=== PATIENT | female | born 1965 | race Caucasian/White ===

== ENCOUNTER 2017-03-06 21:28 | Emergency (ER) | payer BC, OTHER ==
[2017-03-06 21:29] VITALS: BMI 23.3
[2017-03-06 22:07] VITALS: TEMP 97.8
--- NOTE | 2017-03-06 22:10 | ED PDOC ---
Arrival/HPI - General Chief Complaint: Rib Injury Time Seen by Provider: 03/06/17 21:41 Historian: Patient - History of Present Illness Narrative History of Present Illness (Text): 03/06/17 21:50 Heidi Schaefer is a 51 year old female, whose past medical history includes asthma, who presents to the emergency department complaining of right sided rib pain radiating to breast area. Patient states that she developed pain after she was struck by her car door in her right side 1 week ago. She says for 3 days the pain now seems to radiate to her right breast as well. Patient states that she took Tylenol and Aleve which brought some relief by the pain came back. Patient has no other complaints at this time. Time/Duration: < week Symptom Onset: Gradual Symptom Course: Unchanged Activities at Onset: Light Context: Home Past Medical History - Infectious Disease Hx of Infectious Diseases: None - Tetanus Immunization Tetanus Immunization: Unknown - Cardiac Hx Hypertension: Yes - Pulmonary Hx Asthma: Yes - Psychiatric Hx Depression: Yes Hx Emotional Abuse: No Hx Physical Abuse: No Hx Substance Use: No - Surgical History Hx Section: Yes - Suicidal Assessment Feels Threatened In Home Enviroment: No Family/Social History - Physician Review Nursing Documentation Reviewed: Yes Family/Social History: Other (nc) Smoking Status: Never Smoked Hx Alcohol Use: No Hx Substance Use: No Hx Substance Use Treatment: No Allergies/Home Meds Allergies/Adverse Reactions: Allergies No Known Allergies Allergy (Verified 04/07/14 17:41) Review of Systems - Physician Review All systems were reviewed & negative as marked: Yes - Review of Systems Constitutional: absent: Fevers, Night Sweats Eyes: absent: Vision Changes ENT: absent: Hearing Changes Respiratory: absent: SOB Gastrointestinal: absent: Abdominal Pain Genitourinary Female: absent: Dysuria, Frequency Musculoskeletal: absent: Arthralgias Skin: absent: Rash Neurological: absent: Headache Endocrine: absent: Diaphoresis Hemo/Lymphatic: absent: Adenopathy Physical Exam Vital Signs Reviewed: Yes Vital Signs Temp Pulse Resp BP Pulse Ox 03/07/17 00:38 68 18 134/73 99 03/06/17 23:29 65 16 135/70 99 03/06/17 21:50 97.8 F 63 18 139/72 97 Appearance: Positive for: Well-Appearing, Non-Toxic Pain Distress: None Mental Status: Positive for: Alert and Oriented X 3 - Systems Exam Head: Present: Atraumatic, Normocephalic Pupils: Present: PERRL Extroacular Muscles: Present: EOMI Mouth: Present: Moist Mucous Membranes Neck: Present: Normal Range of Motion Respiratory/Chest: Present: Clear to Auscultation, Good Air Exchange, Tender to Palpation (Tenderness to right lateral chest wall at the level of the breast and to right lateral breast; no crepitus; no deformity; no palpable mass; no erythema; no swelling). No: Respiratory Distress, Accessory Muscle Use Cardiovascular: Present: Regular Rate and Rhythm, Normal S1, S2. No: Murmurs Abdomen: Present: Normal Bowel Sounds. No: Tenderness, Distention, Peritoneal Signs Back: Present: Normal Inspection Upper Extremity: No: Cyanosis, Edema Lower Extremity: No: Edema Neurological: Present: GCS=15, CN II-XII Intact, Speech Normal Skin: Present: Warm, Dry. No: Rashes Psychiatric: Present: Alert, Oriented x 3 Medical Decision Making ED Course and Treatment: 03/07/17 00:33 Radiology reviewed, chest x-ray shows no acute finding and rib x-ray shows no acute fracture. disc w pt results, plan for rx, follow up and rtr. she v/u. all questions and concerns addressed at this time. - RAD Interpretation Radiology Orders: 03/06/17 22:00 CHEST TWO VIEWS (PA/LAT) [RAD] Stat 03/06/17 22:01 RIBS RIGHT [RAD] Stat - Medication Orders Current Medication Orders: Discontinued Medications Acetaminophen (Tylenol 325mg Tab) 975 mg PO STAT STA Stop: 03/06/17 22:02 Last Admin: 03/06/17 22:16 Dose: 975 mg MAR Pain/Vitals Document 03/06/17 22:16 JOL (Rec: 03/06/17 22:19 JOL [facility] [id number] Pain Reassessment Is This A Pain ReAssessment? No Sleep Is patient sleeping during reassessment? No Presence of Pain Presence of Pain Yes Pain Scale Used Pain Scale Used Numeric Location Pain Location Body Site Chest Intensity 7 Scale Used Numeric Ibuprofen (Motrin Tab) 800 mg PO STAT STA Stop: 03/06/17 22:02 Last Admin: 03/06/17 22:14 Dose: 800 mg - Scribe Statement The provider has reviewed the documentation as recorded by the Alfredo Espino Provider Scribe Attestation: All medical record entries made by the Barbaraibe were at my direction and personally dictated by me. I have reviewed the chart and agree that the record accurately reflects my personal performance of the history, physical exam, medical decision making, and the department course for this patient. I have also personally directed, reviewed, and agree with the discharge instructions and disposition. Disposition/Present on Arrival - Present on Arrival Any Indicators Present on Arrival: No History of DVT/PE: No History of Uncontrolled Diabetes: No Urinary Catheter: No History of Decub. Ulcer: No History Surgical Site Infection Following: None - Disposition Have Diagnosis and Disposition been Completed?: Yes Diagnosis: Rib pain on right side Disposition: HOME/ ROUTINE Disposition Time: 00:38 Condition: IMPROVED Discharge Instructions (ExitCare): Rib Contusion (ED) Additional Instructions: Please follow up with your doctor next week. Return to the ER for any worsening symptoms or for any other concerns. Prescriptions: Acetaminophen [Pain Reliever] 1,000 mg PO Q6H PRN #10 tablet PRN Reason: Pain, Moderate (4-7) Ibuprofen [Motrin Tab] 600 mg PO Q6H PRN #20 tab PRN Reason: Pain, Moderate (4-7) [facility] - Follow up with primary Forms: [employer] (Nauruan)
[2017-03-07 00:45] VITALS: O2SAT 99
[2017-03-07 00:47] VITALS: BP 134/73; PULSE 68; RESP 18
--- NOTE | 2017-03-07 08:14 | RAD ---
HISTORY: hit right chest wall, pain COMPARISON: Chest x-ray performed 07/18/13 TECHNIQUE: Chest PA and lateral FINDINGS: Examination limited by habitus. LUNGS: No focal consolidation. Please note that chest x-ray has limited sensitivity for the detection of pulmonary masses. PLEURA: No significant pleural effusion identified. No definite pneumothorax . CARDIOVASCULAR: The cardiomediastinal silhouette appears within normal limits of size. OSSEOUS STRUCTURES: No acute osseous abnormality identified. VISUALIZED UPPER ABDOMEN: Unremarkable. OTHER FINDINGS: None. IMPRESSION: No focal consolidation, significant pleural effusion, or definite pneumothorax identified.
--- NOTE | 2017-03-07 08:16 | RAD ---
Indication: Hit right chest wall, pain Right ribs radiographs Comparison: Chest x-ray performed 03/07/17 and 07/18/13 Findings: No appreciable displaced right rib fracture. Soft tissues appear unremarkable. Visualize right wilian thorax without focal consolidation, significant pleural effusion, or definite pneumothorax. Impression: No appreciable displaced right rib fracture.
== END 2017-03-07 00:38 | disposition home or self-care (01) ==
LOC: ED 21:28
DX: R07.81 Pleurodynia (principal); I10 Essential (primary) hypertension

== ENCOUNTER 2017-11-14 18:25 | Emergency (ER) | payer BC, OTHER ==
[2017-11-14 18:25] VITALS: BMI 23.3
[2017-11-14] MEDS ORDERED: Sodium Chloride 0.9% 1,000 ML IV STA (18:38)
--- NOTE | 2017-11-14 18:38 | ED PDOC ---
Arrival/HPI - General Chief Complaint: Chest Pain Time Seen by Provider: 11/14/17 18:33 Historian: Patient - History of Present Illness Narrative History of Present Illness (Text): 11/14/17 18:34 A 51 year old female, whose past medical history includes asthma, NKDA, post menopausal, is brought in by ambulance and presents to the emergency department complaining of chest pain and anxiety after having an argument. Patient reports she was at home having an argument with her family when she began to develop chest tightness, nonradiating, no numbness or tingling. Patient now here in the ER, feels she is still experiencing tightness. Patient denies any fever, chills, palpitations, extremity pain/swells, or any other complaints. Also, patient denies any EtOH/substance abuse. No PMD Past Medical History - Provider Review Nursing Documentation Reviewed: Yes - Infectious Disease Hx of Infectious Diseases: None - Tetanus Immunization Tetanus Immunization: Unknown - Cardiac Hx Hypertension: Yes - Pulmonary Hx Asthma: Yes - Psychiatric Hx Depression: Yes Hx Emotional Abuse: No Hx Physical Abuse: No Hx Substance Use: No - Surgical History Hx Section: Yes - Suicidal Assessment Feels Threatened In Home Enviroment: No Family/Social History - Physician Review Nursing Documentation Reviewed: Yes Family/Social History: No Known Family HX Smoking Status: Never Smoked Hx Alcohol Use: No Hx Substance Use: No Hx Substance Use Treatment: No Allergies/Home Meds Allergies/Adverse Reactions: Allergies No Known Allergies Allergy (Verified 11/14/17 18:29) Home Medications: Home Meds Medication Instructions Recorded Confirmed Albuterol Sulfate [Proventil Hfa] 2 puff NEB Q4 PRN 11/14/17 11/14/17 Review of Systems - Physician Review All systems were reviewed & negative as marked: Yes - Review of Systems Constitutional: absent: Fevers, Night Sweats Cardiovascular: Chest Pain. absent: Palpitations Musculoskeletal: absent: Arthralgias, Joint Swelling, Myalgias Psychiatric: Anxiety Physical Exam Vital Signs Reviewed: Yes Vital Signs Temp Pulse Resp BP Pulse Ox 11/14/17 20:27 98.2 F 89 17 114/63 98 11/14/17 18:52 98.1 F 85 18 135/66 Temperature: Afebrile Blood Pressure: Normal Pulse: Regular Respiratory Rate: Normal Appearance: Positive for: Well-Appearing Pain Distress: Mild Mental Status: Positive for: Alert and Oriented X 3 - Systems Exam Head: Present: Atraumatic, Normocephalic Pupils: Present: PERRL Extroacular Muscles: Present: EOMI Conjunctiva: Present: Normal Ears: Present: NORMAL TM, Normal Canal. No: Erythema Mouth: Present: Moist Mucous Membranes. No: Other Pharnyx: No: ERYTHEMA, EXUDATE Nose (External): Present: Atraumatic. No: Abrasion, Contusion, Laceration Nose (Internal): Present: Normal Inspection, No Active Bleeding Neck: Present: Normal Range of Motion, Trachea Midline. No: Meningeal Signs, MIDLINE TENDERNESS, Paraspinal Tenderness, Lymphadenopathy Respiratory/Chest: Present: Clear to Auscultation, Good Air Exchange. No: Respiratory Distress, Accessory Muscle Use, Decreased Breath Sounds, Rales, Retracting, Rhonchi, Tachypneic, Tender to Palpation Cardiovascular: Present: Regular Rate and Rhythm, Normal S1, S2. No: Murmurs Abdomen: No: Tenderness, Distention, Peritoneal Signs Back: Present: Normal Inspection Upper Extremity: Present: Normal Inspection. No: Cyanosis, Edema Lower Extremity: Present: Normal Inspection. No: Edema Neurological: Present: GCS=15, CN II-XII Intact, Speech Normal, Motor Func Grossly Intact, Gait Normal, Memory Normal Skin: Present: Warm, Dry, Normal Color. No: Rashes Psychiatric: Present: Alert, Oriented x 3, Normal Insight, Normal Concentration , Anxious Medical Decision Making ED Course and Treatment: 11/14/17 18:38 Impression: 51 year old female with chest pain. No acute findings on physical examination except patient is anxious. Plan: -- EKG -- Labs -- Ativan -- IV Fluids -- Chest X-ray -- Reassess and disposition Progress Notes: 11/14/17 18:42 Patient's heart score is 2. 11/14/17 20:17 -EKG: NSR @ 79 BPM, no ST elevation or depression, no T wave inversion -Chest xray show poor inspiration with low lung volume, coarse bronchovascular marking and mild basilar atelectasis -labs show no acute findings -Troponin is negative -Pt. is asymptomatic now, request to be discharged home, feels like the anxiety she has. -Discharge home with education on bed rest, avoid caffeine product, follow up with your own pmd and adobe flex developer within 2 days, return to the ER for any new or worsening signs or symptoms. - Lab Interpretations Lab Results: 11/14/17 19:20 11/14/17 19:20 Lab Results 11/14/17 19:20: WBC 7.8, RBC 4.39, Hgb 13.0, Hct 39.1, MCV 89.1, MCH 29.6, MCHC 33.2, RDW 12.7, Plt Count 227, MPV 9.2, Gran % 45.4 L, Lymph % (Auto) 42.5 H, [place] % (Auto) 9.8 H, Eos % (Auto) 1.8, Baso % (Auto) 0.5, Gran # 3.55, Lymph # ( Auto) 3.3, [place] # (Auto) 0.8 H, Eos # (Auto) 0.1, Baso # (Auto) 0.04 11/14/17 19:20: Sodium 144, Potassium 3.7, Chloride 108 H, Carbon Dioxide 23, Anion Gap 16, BUN 11, Creatinine 0.8, Est GFR ( Amer) > 60, Est GFR (Non- Af Amer) > 60, Random Glucose 97, Calcium 9.2, Magnesium 1.8, Total Bilirubin 0.3, AST 59 H, ALT 103 H, Alkaline Phosphatase 94, Lactate Dehydrogenase 495, Total Creatine Kinase 107, Troponin I < 0.01, Total Protein 7.4, Albumin 4.1, Globulin 3.3, Albumin/Globulin Ratio 1.2 I have reviewed the lab results: Yes - RAD Interpretation Radiology Orders: 11/14/17 18:38 CHEST PORTABLE [RAD] Stat poor inspiration with low lung volume, coarse bronchovascular marking and mild basilar atelectasis Pharmacist: Radiologist - EKG Interpretation EKG Interpretation (Text): 11/14/17 19:05 -EKG: NSR @ 79 BPM, no ST elevation or depression, no T wave inversion Interpreted by ED Physician: Yes Type: 12 lead EKG - Medication Orders Current Medication Orders: Discontinued Medications Sodium Chloride (Sodium Chloride 0.9%) 1,000 mls @ 999 mls/hr IV .Q1H1M STA Stop: 11/14/17 19:38 Last Admin: 11/14/17 19:01 Dose: 999 mls/hr eMAR Start Stop Document 11/14/17 19:01 EQ (Rec: 11/14/17 19:01 EQ [id number]) Intravenous Solution Start Date 11/14/17 Start Time 19:01 Lorazepam (Ativan) 1 mg IVP ONCE ONE PRN Reason: Protocol Stop: 11/14/17 18:39 Last Admin: 11/14/17 19:00 Dose: 1 mg IVP Administration Document 11/14/17 19:00 EQ (Rec: 11/14/17 19:00 EQ [id number]) Charges for Administration # of IVP Administrations 1 - PA / DISPOSAL PLANT OPERATOR / Resident Statement MD/DO has reviewed & agrees with the documentation as recorded. - Scribe Statement The provider has reviewed the documentation as recorded by the Alfredo Cedeño Provider Scribe Attestation: All medical record entries made by the Scribe were at my direction and personally dictated by me. I have reviewed the chart and agree that the record accurately reflects my personal performance of the history, physical exam, medical decision making, and the department course for this patient. I have also personally directed, reviewed, and agree with the discharge instructions and disposition. Disposition/Present on Arrival - Present on Arrival Any Indicators Present on Arrival: No History of DVT/PE: No History of Uncontrolled Diabetes: No Urinary Catheter: No History of Decub. Ulcer: No History Surgical Site Infection Following: None - Disposition Have Diagnosis and Disposition been Completed?: Yes Diagnosis: Anxiety Disposition: HOME/ ROUTINE Disposition Time: 20:19 Patient Plan: Discharge Condition: GOOD Additional Instructions: Discharge home with education on bed rest, avoid caffeine product, follow up with your own pmd and adobe flex developer within 2 days, return to the ER for any new or worsening signs or symptoms. Referrals: [facility] [place] [Outside] - Follow up with primary Erasto West MD [Staff Provider] - Follow up with primary Forms: WORK NOTE
[2017-11-14 19:30] LABS: BASO # 0.04 K/mm3 (0.0-2.0); BASO % 0.5 % (0.0-3.0); EOS # 0.1 (0.0-0.7); EOS % 1.8 % (1.5-5.0); GRAN # 3.55 (1.4-6.5); GRAN % 45.4 % (50.0-68.0); LYMPH # 3.3 (1.2-3.4); LYMPH % 42.5 % (22.0-35.0); MEAN CELL VOLUME 89.1 fl (80.0-105.0); MEAN CORPUSCULAR HEMOGLOBIN 29.6 pg (25.0-35.0); MEAN CORPUSCULAR HGB CONC 33.2 g/dl (31.0-37.0); MEAN PLATELET VOLUME 9.2 fl (7.0-11.0); MONO # 0.8 (0.1-0.6); MONO % 9.8 % (1.0-6.0); RBC 4.39 10^6/uL (3.5-6.1); RED CELL DISTRIBUTION WIDTH 12.7 % (11.5-14.5); WHITE BLOOD COUNT 7.8 10^3/ul (4.5-11.0)
[2017-11-14 19:46] LABS: ALB/GLOB RATIO 1.2 (1.1-1.8); ALBUMIN 4.1 g/dL (3.0-4.8); ALT/SGPT 103 U/L (7-56); AST/SGOT 59 U/L (14-36); BLOOD UREA NITROGEN 11 mg/dL (7-21); CALCIUM 9.2 mg/dL (8.4-10.5); GFR AFRICAN-AMERICAN > 60; GFR NON-AFRICAN AMERICAN > 60
[2017-11-14 20:02] LABS: TROPONIN I < 0.01 ng/mL
[2017-11-14 20:28] VITALS: BP 114/63; PULSE 89; RESP 17; TEMP 98.2; O2SAT 98
--- NOTE | 2017-11-15 09:03 | RAD ---
HISTORY: medical clearance COMPARISON: Comparison chest 03/07/2017 FINDINGS: LUNGS: Poor inspiration with low lung volumes, crowded bronchovascular markings and mild bibasilar atelectasis. PLEURA: No significant pleural effusion identified, no pneumothorax apparent. CARDIOVASCULAR: Normal. OSSEOUS STRUCTURES: No significant abnormalities. VISUALIZED UPPER ABDOMEN: Normal. OTHER FINDINGS: None. IMPRESSION: Poor inspiration with low lung volumes, crowded bronchovascular markings and mild bibasilar atelectasis.
--- NOTE | 2017-11-15 11:54 | CARD ---
APPROVED REPORT EKG Measurement Heart [id number] <Conclusion> Normal sinus rhythm Low voltage QRS Borderline ECG
== END 2017-11-14 20:28 | disposition home or self-care (01) ==
LOC: ED 18:25
DX: F41.9 Anxiety disorder, unspecified (principal); I10 Essential (primary) hypertension
CPT/HCPCS: 71045; 80053; 82550; 83615; 83735; 84484; 85025; 93005; 96374; 99283; J2060; J7030

== ENCOUNTER 2018-04-23 14:01 | Emergency (ER) | payer OTHER ==
[2018-04-23 14:10] VITALS: BMI 26.6
--- NOTE | 2018-04-23 14:56 | ED PDOC ---
Arrival/HPI - General Chief Complaint: Fever Time Seen by Provider: 04/23/18 14:19 Historian: Patient - History of Present Illness Narrative History of Present Illness (Text): 04/23/18 14:44 52 year old female, with past medical history of asthma, presents to the Emergency department complaining of fever, sore throat, headache, nausea, back pain and generalized body aches for several days. Patient reports unchanged symptoms with amoxicillin prescribed by her PMD, prompting her to present to the ED for medical evaluation. Patient additionally reports urinary frequency but denies any changes in urinary output, hematuria or dysuria. Patient denies any other associated somatic complaints. Patient denies any dizziness, chest pain, shortness of breath, dyspnea on exertion, cough, abdominal pain, vomiting, diarrhea, neck pain, or any other complaints. PMD: Dr. Yang Time/Duration: < week Symptom Onset: Gradual Symptom Course: Unchanged Quality: Aching Activities at Onset: Light Context: Home Past Medical History - Provider Review Nursing Documentation Reviewed: Yes - Infectious Disease Hx of Infectious Diseases: None - Tetanus Immunization Tetanus Immunization: Unknown - Cardiac Hx Hypertension: Yes - Pulmonary Hx Asthma: Yes - Psychiatric Hx Depression: Yes Hx Emotional Abuse: No Hx Physical Abuse: No Hx Substance Use: No - Surgical History Hx Section: Yes - Anesthesia Hx Anesthesia: No - Suicidal Assessment Feels Threatened In Home Enviroment: No Family/Social History - Physician Review Nursing Documentation Reviewed: Yes Family/Social History: Unknown Family HX Smoking Status: Never Smoked Hx Alcohol Use: No Hx Substance Use: No Hx Substance Use Treatment: No Allergies/Home Meds Allergies/Adverse Reactions: Allergies No Known Allergies Allergy (Verified 04/23/18 15:30) Home Medications: Home Meds Medication Instructions Recorded Confirmed Albuterol Sulfate [Proventil Hfa] 2 puff NEB Q4 PRN 11/14/17 04/23/18 Review of Systems - Physician Review All systems were reviewed & negative as marked: Yes - Review of Systems Constitutional: Fevers ENT: Sore Throat Respiratory: absent: SOB, Cough Cardiovascular: absent: Chest Pain Gastrointestinal: Nausea. absent: Abdominal Pain, Diarrhea, Vomiting Genitourinary Female: Frequency. absent: Dysuria, Hematuria, Urine Output Changes Musculoskeletal: Back Pain. absent: Neck Pain Skin: absent: Rash Neurological: Headache. absent: Dizziness Physical Exam Vital Signs Reviewed: Yes Vital Signs Temp Pulse Resp BP Pulse Ox 04/23/18 14:09 98.8 F 94 H 18 111/74 98 Temperature: Afebrile Blood Pressure: Normal Pulse: Regular Respiratory Rate: Normal Appearance: Positive for: Well-Appearing, Non-Toxic, Comfortable Pain Distress: None Mental Status: Positive for: Alert and Oriented X 3 - Systems Exam Head: Present: Atraumatic, Normocephalic Pupils: Present: PERRL Extroacular Muscles: Present: EOMI Conjunctiva: Present: Normal Mouth: Present: Moist Mucous Membranes Pharnyx: Present: Normal. No: EXUDATE, TONSILS ENLARGED Neck: Present: Normal Range of Motion Respiratory/Chest: Present: Clear to Auscultation, Good Air Exchange. No: Respiratory Distress, Accessory Muscle Use Cardiovascular: Present: Regular Rate and Rhythm, Normal S1, S2. No: Murmurs Abdomen: No: Tenderness, Distention, Peritoneal Signs Back: Present: Normal Inspection. No: Midline Tenderness Upper Extremity: Present: Normal Inspection. No: Cyanosis, Edema Lower Extremity: Present: Normal Inspection. No: Edema Neurological: Present: GCS=15, CN II-XII Intact, Speech Normal Skin: Present: Warm, Dry, Normal Color. No: Rashes Psychiatric: Present: Alert, Oriented x 3, Normal Insight, Normal Concentration Medical Decision Making ED Course and Treatment: 04/23/18 14:44 Impression: 52 year old female presents to the Emergency department complaining of body aches. Differential Diagnosis included but are not limited to: Viral syndrome Plan: -- Labs -- Toradol -- Zofran -- Urine Culture -- Urinalysis -- Reassess and disposition Prior Visits: Notes and results from previous visits were reviewed. Progress Notes: 04/23/18 19:00 CT of Abdomen/Pelvis reviewed by radiologist, shows: Bilateral nonobstructing renal calculi measures 4 millimeter on the right and 2 millimeter on the left. No evidence of hydronephrosis or hydroureter. No evidence of acute pathology otherwise in the abdomen and pelvis. 04/23/18 19:14 CT of Abdomen shows kidney stones. Patient was made aware of imaging results. Patient is stable to be discharged home with follow-up instructions with Dr. Barrios. - RAD Interpretation Management Trainee: Radiologist - Medication Orders Current Medication Orders: Discontinued Medications Ketorolac Tromethamine (Toradol) 30 mg IVP STAT STA Stop: 04/23/18 14:45 Ondansetron HCl (Zofran Inj) 4 mg IVP STAT STA Stop: 04/23/18 14:45 - Scribe Statement The provider has reviewed the documentation as recorded by the Scribe Brien Ortiz. All medical record entries made by the Scribe were at my direction and personally dictated by me. I have reviewed the chart and agree that the record accurately reflects my personal performance of the history, physical exam, medical decision making, and the department course for this patient. I have also personally directed, reviewed, and agree with the discharge instructions and disposition. Disposition/Present on Arrival - Present on Arrival Any Indicators Present on Arrival: No History of DVT/PE: No History of Uncontrolled Diabetes: No Urinary Catheter: No History of Decub. Ulcer: No History Surgical Site Infection Following: None - Disposition Have Diagnosis and Disposition been Completed?: Yes Diagnosis: Renal stone Disposition: HOME/ ROUTINE Disposition Time: 19:41 Condition: GOOD Discharge Instructions (ExitCare): Kidney Stones in Adults Additional Instructions: Follow up with the urologist tomorrow and take cipro, motrin as directed. Prescriptions: Ciprofloxacin HCl [Cipro] 250 mg PO Q12 7 Days #14 tablet Ibuprofen [Motrin Ib] 600 mg PO Q6 5 Days #20 tablet Referrals: Chuckie Barrios MD [Staff Provider] - Follow up with primary Forms: [employer] ([place] Citizen)
[2018-04-23 15:00] LABS: URINE APPEARANCE SL CLOUDY (CLEAR); URINE BILIRUBIN NEGATIVE (NEGATIVE); URINE BLOOD SMALL (NEGATIVE); URINE COLOR YELLOW (YELLOW); URINE GLUCOSE (UA) NEGATIVE (NEGATIVE); URINE LEUKOCYTE ESTERASE MODERATE Leu/uL (NEGATIVE); URINE PROTEIN NEGATIVE mg/dL (<30 mg/dL); URINE UROBILINOGEN 0.2 E.U./dL (<1 E.U./dL)
[2018-04-23 15:04] LABS: URINE RBC 0 - 2 /hpf (0-2)
[2018-04-23 15:05] LABS: URINE BACTERIA FEW (NEG)
[2018-04-23 15:48] LABS: BASO # 0.02 K/mm3 (0.0-2.0); BASO % 0.1 % (0.0-3.0); EOS % 0.1 % (1.5-5.0); GRAN # 15.31 (1.4-6.5); GRAN % 80.4 % (50.0-68.0); HEMOGLOBIN 15.7 g/dL (12.0-16.0); LYMPH # 2.4 (1.2-3.4); LYMPH % 12.4 % (22.0-35.0); MEAN CELL VOLUME 91.8 fl (80.0-105.0); MEAN CORPUSCULAR HEMOGLOBIN 29.8 pg (25.0-35.0); MEAN CORPUSCULAR HGB CONC 32.4 g/dl (31.0-37.0); MEAN PLATELET VOLUME 10.1 fl (7.0-11.0); MONO # 1.3 (0.1-0.6); RBC 5.27 10^6/uL (3.5-6.1); RED CELL DISTRIBUTION WIDTH 13.2 % (11.5-14.5)
[2018-04-23 15:54] LABS: ALB/GLOB RATIO 1.1 (1.1-1.8); ALBUMIN 4.4 g/dL (3.0-4.8); ALT/SGPT 143 U/L (7-56); AST/SGOT 85 U/L (14-36); BLOOD UREA NITROGEN 9 mg/dL (7-21); CALCIUM 9.6 mg/dL (8.4-10.5); GFR NON-AFRICAN AMERICAN > 60
[2018-04-23] MEDS ORDERED: Sodium Chloride 0.9% 1,000 ML IV STA (16:15)
--- NOTE | 2018-04-23 19:06 | CT ---
Date of service: 04/23/2018 PROCEDURE: CT Abdomen and Pelvis without intravenous contrast HISTORY: back pain r/o kidney stone COMPARISON: None. TECHNIQUE: Axial and reformatted coronal and sagittal CT images of the abdomen and pelvis were obtained without IV or oral contrast administration. Contrast dose: 0 Radiation dose: Total exam DLP = 637.77 mGy-cm. This CT exam was performed using one or more of the following dose reduction techniques: Automated exposure control, adjustment of the mA and/or kV according to patient size, and/or use of iterative reconstruction technique. FINDINGS: LOWER THORAX: Unremarkable. LIVER: Unremarkable. No gross lesion or ductal dilatation. GALLBLADDER AND BILE DUCTS: Unremarkable. PANCREAS: Unremarkable. No gross lesion or ductal dilatation. SPLEEN: Unremarkable. ADRENALS: Unremarkable. No mass. KIDNEYS AND URETERS: There is 4 millimeter nonobstructing right renal calculus at the midpole. There is 2 millimeter nonobstructing left renal calculus at the upper pole. No evidence of hydronephrosis or hydroureter. VASCULATURE: Unremarkable. No aortic aneurysm. No aortic atherosclerotic calcification or mural plaque present. BOWEL: Unremarkable. No obstruction. No gross mural thickening. APPENDIX: No evidence of appendicitis. PERITONEUM: Unremarkable. No free fluid. No free air. LYMPH NODES: Unremarkable. No enlarged lymph nodes. BLADDER: Unremarkable. REPRODUCTIVE: Unremarkable. BONES: No acute fracture. OTHER FINDINGS: None. IMPRESSION: Bilateral nonobstructing renal calculi measures 4 millimeter on the right and 2 millimeter on the left. No evidence of hydronephrosis or hydroureter. No evidence of acute pathology otherwise in the abdomen and pelvis.
[2018-04-23 19:40] VITALS: BP 118/73; PULSE 88; RESP 16; TEMP 98.2; O2SAT 99
--- NOTE | 2018-04-24 09:05 | RAD ---
Date of service: 04/23/2018 HISTORY: r/o infiltrate COMPARISON: 11/14/2017 FINDINGS: LUNGS: No active pulmonary disease. PLEURA: No significant pleural effusion identified, no pneumothorax apparent. CARDIOVASCULAR: No aortic atherosclerotic calcification present. Normal cardiac size. No pulmonary vascular congestion. OSSEOUS STRUCTURES: No significant abnormalities. VISUALIZED UPPER ABDOMEN: Normal. OTHER FINDINGS: None. IMPRESSION: No active disease.
== END 2018-04-23 19:41 | disposition home or self-care (01) ==
LOC: ED 14:01
DX: N20.0 Calculus of kidney (principal); I10 Essential (primary) hypertension
CPT/HCPCS: 71045; 74176; 80053; 81001; 85025; 87070; 87086; 87430; 96361; 96374; 96375; 99285; J1885; J2405; J7030

== ENCOUNTER 2018-04-29 20:55 | Emergency (ER) | payer OTHER ==
[2018-04-29 20:55] VITALS: BMI 26.6
[2018-04-29 22:16] VITALS: RESP 18
[2018-04-29 22:53] VITALS: TEMP 99.1
[2018-04-29] MEDS ORDERED: DiphenhydrAMINE 50 mg/ml Inj IVP STA (22:53)
[2018-04-29 23:48] LABS: BASO # 0.02 K/mm3 (0.0-2.0); BASO % 0.1 % (0.0-3.0); EOS # 0.2 (0.0-0.7); EOS % 1.3 % (1.5-5.0); GRAN # 9.98 (1.4-6.5); GRAN % 63.6 % (50.0-68.0); LYMPH # 4.1 (1.2-3.4); LYMPH % 26.1 % (22.0-35.0); MEAN CELL VOLUME 91.8 fl (80.0-105.0); MEAN CORPUSCULAR HEMOGLOBIN 30.3 pg (25.0-35.0); MEAN PLATELET VOLUME 9.1 fl (7.0-11.0); MONO # 1.4 (0.1-0.6); MONO % 8.9 % (1.0-6.0); RBC 4.39 10^6/uL (3.5-6.1); RED CELL DISTRIBUTION WIDTH 12.9 % (11.5-14.5); WHITE BLOOD COUNT 15.7 10^3/uL (4.5-11.0)
[2018-04-29 23:49] LABS: HEMOGLOBIN 13.3 g/dL (12.0-16.0)
[2018-04-29 23:57] LABS: INR 0.96; PARTIAL THROMBOPLASTIN TIME 36.6 Seconds (25.1-36.5); PROTHROMBIN TIME 10.9 SECONDS (9.4-12.5)
[2018-04-30 00:09] LABS: ALB/GLOB RATIO 1.1 (1.1-1.8); ALT/SGPT 76 U/L (7-56); AST/SGOT 64 U/L (14-36); BLOOD UREA NITROGEN 9 mg/dL (7-21); CALCIUM 9.2 mg/dL (8.4-10.5); GFR NON-AFRICAN AMERICAN > 60
[2018-04-30 00:28] LABS: URINE APPEARANCE CLEAR (CLEAR); URINE BILIRUBIN NEGATIVE (NEGATIVE); URINE BLOOD NEGATIVE (NEGATIVE); URINE COLOR YELLOW (YELLOW); URINE GLUCOSE (UA) NEGATIVE (NEGATIVE); URINE LEUKOCYTE ESTERASE TRACE Leu/uL (NEGATIVE); URINE PROTEIN NEGATIVE mg/dL (<30 mg/dL); URINE UROBILINOGEN 0.2 E.U./dL (<1 E.U./dL)
--- NOTE | 2018-04-30 01:19 | ED PDOC ---
Arrival/HPI - General Chief Complaint: Headache Historian: Patient - History of Present Illness Narrative History of Present Illness (Text): 04/30/18 01:14 52yo female with pmhx of Asthma who present with 3days history of diffuse headache and fever. Reports Tmax of 99.5 at home. States she was seen here on 04/24/18 for URI. States her headache is usually temporary relieved with Ibuprofen 800mg but then it comes back. States she have had headache in the past but the intensity is worse this time. +N/N. Last vomiting was two days ago. She denies nausea, vomiting, focal weakness, visual changes, photophobia, neck pain,, rash, nuchal ridigty, trauma, abdominal pain, any other complaint. Past Medical History - Provider Review Nursing Documentation Reviewed: Yes - Infectious Disease Hx of Infectious Diseases: None - Tetanus Immunization Tetanus Immunization: Unknown - Cardiac Hx Hypertension: Yes - Pulmonary Hx Asthma: Yes - Psychiatric Hx Depression: Yes Hx Emotional Abuse: No Hx Physical Abuse: No Hx Substance Use: No - Surgical History Hx Section: Yes - Anesthesia Hx Anesthesia: No - Suicidal Assessment Feels Threatened In Home Enviroment: No Family/Social History - Physician Review Nursing Documentation Reviewed: Yes Family/Social History: Unknown Family HX Smoking Status: Never Smoked Hx Alcohol Use: No Hx Substance Use: No Hx Substance Use Treatment: No Allergies/Home Meds Allergies/Adverse Reactions: Allergies No Known Allergies Allergy (Verified 04/29/18 22:08) Review of Systems - Physician Review All systems were reviewed & negative as marked: Yes - Review of Systems Constitutional: Fevers Eyes: Normal ENT: Normal Respiratory: Normal Cardiovascular: Normal Gastrointestinal: Normal Genitourinary Female: Normal Musculoskeletal: Normal Skin: Normal Neurological: Headache Endocrine: Normal Hemo/Lymphatic: Normal Psychiatric: Normal Physical Exam Vital Signs Reviewed: Yes Vital Signs Temp Pulse Resp BP Pulse Ox 04/29/18 22:52 99.1 F 74 18 124/71 100 04/29/18 22:15 98.2 F 75 18 124/71 100 Temperature: Afebrile Blood Pressure: Normal Pulse: Regular Respiratory Rate: Normal Appearance: Positive for: Well-Appearing, Non-Toxic, Comfortable Pain Distress: None Mental Status: Positive for: Alert and Oriented X 3 - Systems Exam Head: Present: Atraumatic, Normocephalic Pupils: Present: PERRL Extroacular Muscles: Present: EOMI Conjunctiva: Present: Normal Mouth: Present: Moist Mucous Membranes Neck: Present: Normal Range of Motion. No: Meningeal Signs Respiratory/Chest: Present: Clear to Auscultation, Good Air Exchange. No: Respiratory Distress, Accessory Muscle Use Cardiovascular: Present: Regular Rate and Rhythm, Normal S1, S2. No: Murmurs Abdomen: No: Tenderness, Distention, Peritoneal Signs Back: Present: Normal Inspection Upper Extremity: Present: Normal Inspection. No: Cyanosis, Edema Lower Extremity: Present: Normal Inspection. No: Edema Neurological: Present: GCS=15, CN II-XII Intact, Speech Normal, Motor Func Grossly Intact, Normal Sensory Function, Normal Cerebellar Funct, Norm Deep Tendon Reflexes, Gait Normal, Memory Normal, Other (No focal neurological deficit) Skin: Present: Warm, Dry, Normal Color. No: Rashes Psychiatric: Present: Alert, Oriented x 3, Normal Insight, Normal Concentration Medical Decision Making ED Course and Treatment: 04/30/18 01:46 PT presented for stated history. she was neurologically intact in ED. Her neck is supple and she had no meningeal sign. LAb Tylenol, Benadryl, Reglan Head cT Reassess On reevaluation pt reports improvement of her headache Head CT IMPRESSION: Bilateral ethmoid and sphenoid sinusitis. No acute intracranial abnormality. Labs was reviewed and leukocytosis was noted which showed a lower trend from her lab on 04/24/18' Pt is currently on antibiotic that was given here on 04/24/18 for UTI/strep throat. She was advised to continue with her medication. Fioricet rx given. Referred to her PMD. CT result was DW the pt. - Lab Interpretations Lab Results: 04/29/18 23:30 04/29/18 23:30 Lab Results 04/29/18 23:30: Sodium 141, Potassium 3.5 L, Chloride 106, Carbon Dioxide 27, Anion Gap 12, BUN 9, Creatinine 0.8, Est GFR ( Amer) > 60, Est GFR (Non- Af Amer) > 60, Random Glucose 126 H, Calcium 9.2, Total Bilirubin 0.3, AST 64 H D, ALT 76 H, Alkaline Phosphatase 109, Total Protein 7.9, Albumin 4.0, Globulin 3.8, Albumin/Globulin Ratio 1.1 04/29/18 23:30: Urine Color Yellow, Urine Appearance Clear, Urine pH 7.0, Ur Specific [place] 1.010, Urine Protein Negative, Urine Glucose (UA) Negative, Urine Ketones Negative, Urine Blood Negative, Urine Nitrate Negative, Urine Bilirubin Negative, Urine Urobilinogen 0.2, Ur Leukocyte Esterase Trace H, Urine RBC Pending, Urine WBC Pending 04/29/18 23:30: PT 10.9, INR 0.96, APTT 36.6 H 04/29/18 23:30: WBC 15.7 H, RBC 4.39, Hgb 13.3 D, Hct 40.3, MCV 91.8, MCH 30.3, MCHC 33.0, RDW 12.9, Plt Count 291, MPV 9.1, Gran % 63.6, Lymph % (Auto) 26.1, [place] % (Auto) 8.9 H, Eos % (Auto) 1.3 L, Baso % (Auto) 0.1, Gran # 9.98 H, Lymph # (Auto) 4.1 H, [place] # (Auto) 1.4 H, Eos # (Auto) 0.2, Baso # (Auto) 0.02 - RAD Interpretation Radiology Orders: 04/29/18 22:41 HEAD W/O CONTRAST [CT] Stat - Medication Orders Current Medication Orders: Discontinued Medications Acetaminophen (Tylenol 325mg Tab) 650 mg PO STAT STA Stop: 04/29/18 22:54 Last Admin: 04/29/18 23:25 Dose: 650 mg MAR Pain/Vitals Document 04/29/18 23:25 JOL (Rec: 04/29/18 23:39 [place]OL [place] [id number]) Pain Reassessment Is This A Pain ReAssessment? No Sleep Is patient sleeping during reassessment? No Presence of Pain Presence of Pain Yes Pain Scale Used Protocol: PSCALES Pain Scale Used Numeric Location Pain Location Body Car Driver Intensity 6 Scale Used Numeric Diphenhydramine HCl (Benadryl) 25 mg IVP STAT STA Stop: 04/29/18 22:54 Last Admin: 04/29/18 23:25 Dose: 25 mg IVP Administration Document 04/29/18 23:25 JOL (Rec: 04/29/18 23:40 [place] [id number]) Charges for Administration # of IVP Administrations 1 Metoclopramide HCl (Reglan) 10 mg IVP STAT STA Stop: 04/29/18 22:54 Last Admin: 04/29/18 23:25 Dose: 10 mg IVP Administration Document 04/29/18 23:25 JOL (Rec: 04/29/18 23:39 JOL [facility] [id number]) Charges for Administration # of IVP Administrations 1 Disposition/Present on Arrival - Present on Arrival Any Indicators Present on Arrival: No History of DVT/PE: No History of Uncontrolled Diabetes: No Urinary Catheter: No History of Decub. Ulcer: No History Surgical Site Infection Following: None - Disposition Have Diagnosis and Disposition been Completed?: Yes Diagnosis: Headache, Acute sinusitis Disposition: HOME/ ROUTINE Disposition Time: 01:25 Patient Plan: Discharge Patient Problems: Current Active Problems Problem Status Onset Headache Acute Condition: STABLE Discharge Instructions (ExitCare): Headache, Adult Additional Instructions: Follow up with a Neurologist Return to ED for any new or worsening symptoms Prescriptions: Acetaminophen/Butalbital/Caf [Fioricet] 1 tab PO Q6 #15 tab Referrals: Jose Johnson MD [Staff Provider] - Follow up with primary Forms: [employer] (Bulgarian)
[2018-04-30 02:00] LABS: URINE BACTERIA FEW (NEG); URINE RBC 0 - 2 /hpf (0-2)
[2018-04-30 02:13] VITALS: BP 126/70; PULSE 71; O2SAT 99
--- NOTE | 2018-04-30 08:15 | CT ---
Date of service: 04/30/2018 PROCEDURE: CT HEAD WITHOUT CONTRAST. HISTORY: headache COMPARISON: None available. TECHNIQUE: Axial computed tomography images were obtained through the head/brain without intravenous contrast. Radiation dose: Total exam DLP = 816.84 mGy-cm. This CT exam was performed using one or more of the following dose reduction techniques: Automated exposure control, adjustment of the mA and/or kV according to patient size, and/or use of iterative reconstruction technique. FINDINGS: HEMORRHAGE: No intracranial hemorrhage. BRAIN: No mass effect or edema. No atrophy or chronic microvascular ischemic changes. VENTRICLES: Unremarkable. No hydrocephalus. CALVARIUM: Unremarkable. PARANASAL SINUSES: Bilateral ethmoid and sphenoid sinusitis MASTOID AIR CELLS: Unremarkable as visualized. No inflammatory changes. OTHER FINDINGS: The report concurs with the preliminary [facility] report IMPRESSION: No acute intracranial abnormalities
== END 2018-04-30 01:55 | disposition home or self-care (01) ==
LOC: ED 20:55
DX: J01.90 Acute sinusitis, unspecified (principal); R51 Headache; I10 Essential (primary) hypertension
CPT/HCPCS: 70450; 80053; 81001; 85025; 85610; 85730; 87086; 96374; 96375; 99285; J1200; J2765